=== PATIENT | male | born 1975 | race Caucasian/White ===

== ENCOUNTER 2018-11-01 13:55 | Observation (INO) | payer MEDICARE, MEDICAID ==
[~2018-11-01] VITALS: Ht 172.7 cm; Wt 79.7 kg
[~2018-11-01 13:55] MED LIST: ACET325T21 PO; ACET650S7 PR; BISA10SU65 PR; DIPH60LI PO; Folic Acid PO; MAGNESIUM DR64 MG PO; MULT-750 PO; NICO-485 TD; ONDA4TAB7 PO; PANT40TA5 PO; Risperidone PO; THIA100T67 PO; TRAZ50TA66 PO; VALP250C59 PO; VENL25TA PO; ZIPR20VI IM; ZOLP-413 PO
[2018-11-01 14:14] LABS: BASOPHILS # (AUTO) 0.04 x10^3/uL (0-0.1); BASOPHILS % (AUTO) 1 % (0-1); EOSINOPHILS # (AUTO) 0.15 x10^3/uL (0-0.4); EOSINOPHILS % (AUTO) 3 % (1-7); LYMPHOCYTES # (AUTO) 2.43 x10^3/uL (1-3.4); LYMPHOCYTES % (AUTO) 43 % (22-44); MD NO; MEAN CORPUSCULAR HEMOGLOBIN 30.9 pg (27.5-34.5); MEAN CORPUSCULAR VOLUME 90.8 fL (81-97); MEAN PLATELET VOLUME 7.4 fL (7.4-10.4); MONOCYTES # (AUTO) 0.73 x10^3/uL (0.2-0.8); MONOCYTES % (AUTO) 13 % (2-9); NEUTROPHILS # (AUTO) 2.37 x10^3/uL (1.8-6.8); NEUTROPHILS % (AUTO) 42 % (42-75); PLATELET COUNT 231 x10^3/uL (130-400); RED BLOOD COUNT 5.08 x10^6/uL (4.38-5.82); RED CELL DISTRIBUTION WIDTH 13.8 % (9.4-14.8)
[2018-11-01 14:28] LABS: ANION GAP 5 mmol/L (5-15); CALCIUM 8.7 mg/dL (8.5-10.1); CHLORIDE 110 mmol/L (98-107)
[2018-11-01 14:29] LABS: CREATININE 1.27 mg/dL (0.7-1.3)
--- NOTE | 2018-11-01 14:33 | NUR ---
pt to ed for luq abd pain x4 days. bulge and well healed scar present at painful area. pt denies n/v. connected to monitors. vss. no needs expressed. call light wtihin reach. edmd presend for assessment. orders received. awaiting us.
[2018-11-01 15:01] LABS: ALBUMIN 3.8 g/dL (3.4-5.0); BILIRUBIN, DIRECT 0.1 mg/dL (0.1-0.2)
[2018-11-01 15:03] LABS: BILIRUBIN,INDIRECT 0.3 mg/dL (0.0-2.0); BILIRUBIN,TOTAL 0.4 mg/dL (0.2-1.0); TOTAL PROTEIN 6.9 g/dL (6.4-8.2)
--- NOTE | 2018-11-01 15:45 | NUR ---
pt to ct.
--- NOTE | 2018-11-01 16:00 | NUR ---
pt back from imaging.
--- NOTE | 2018-11-01 16:06 | NUR ---
pt resting in room watching tv. vss. no needs expressed. call light within reach. awaiting ct resutls.
[2018-11-01] MEDS ORDERED: OMNIPAQUE 350 MG/ML, 100ML BOTTLE ONE (16:08)
--- NOTE | 2018-11-01 16:55 | NUR ---
edmd to bs to update on poc. plan to admit. vss. no needs expressed. awaiitng admit orders and room assignment.
--- NOTE | 2018-11-01 17:58 | NUR ---
Jourdan Rn: report to alberto redman [id number]
[2018-11-01] MEDS ORDERED: ONDANSETRON ODT 4 MG PO PRN (18:00)
[2018-11-01] MEDS ORDERED: SODIUM CHLORIDE 0.9% 1,000 ML IV ONE (18:00)
[2018-11-01] MEDS ORDERED: hydrALAzine 20 MG/ML, 1ML IVPush PRN (18:00)
[2018-11-01] MEDS ORDERED: ACETAMINOPHEN 325 MG TABLET PO PRN (18:00)
[2018-11-01] MEDS ORDERED: ONDANSETRON 2MG/ML, 2ML IVPush PRN (18:00)
[2018-11-01] MEDS: LACTATED RINGERS 1,000 ML IV SCH (18:27)
[2018-11-01] MEDS: HEPARIN 5,000 UNITS/ML, 1ML SQ SCH (18:27)
[2018-11-01 20:07] VITALS: BP 121/78
[2018-11-01] MEDS: FAMOTIDINE 20 MG/2 ML IVPush SCH (20:28)
[2018-11-01 20:30] VITALS: BP 125/70
[2018-11-02] MEDS: LACTATED RINGERS 1,000 ML IV SCH (00:51)
[2018-11-02] MEDS: HEPARIN 5,000 UNITS/ML, 1ML SQ SCH ×2 (01:51→10:06)
[2018-11-02 02:28] VITALS: BP 111/73
[2018-11-02 05:09] LABS: BASOPHILS # (AUTO) 0.03 x10^3/uL (0-0.1); BASOPHILS % (AUTO) 1 % (0-1); EOSINOPHILS # (AUTO) 0.15 x10^3/uL (0-0.4); EOSINOPHILS % (AUTO) 4 % (1-7); LYMPHOCYTES # (AUTO) 1.84 x10^3/uL (1-3.4); LYMPHOCYTES % (AUTO) 50 % (22-44); MD NO; MEAN CORPUSCULAR HEMOGLOBIN 31.2 pg (27.5-34.5); MEAN CORPUSCULAR HGB CONC 34.5 g/dL (33.2-36.2); MEAN CORPUSCULAR VOLUME 90.4 fL (81-97); MEAN PLATELET VOLUME 7.9 fL (7.4-10.4); MONOCYTES # (AUTO) 0.48 x10^3/uL (0.2-0.8); MONOCYTES % (AUTO) 13 % (2-9); NEUTROPHILS # (AUTO) 1.17 x10^3/uL (1.8-6.8); NEUTROPHILS % (AUTO) 32 % (42-75); PLATELET COUNT 213 x10^3/uL (130-400); RED BLOOD COUNT 4.96 x10^6/uL (4.38-5.82); RED CELL DISTRIBUTION WIDTH 13.5 % (9.4-14.8)
[2018-11-02 05:11] LABS: ANION GAP 5 mmol/L (5-15); CALCIUM 8.4 mg/dL (8.5-10.1); CHLORIDE 113 mmol/L (98-107); CHOLESTEROL, TOTAL 169 mg/dL (140-239); CREATININE 1.27 mg/dL (0.7-1.3); TRIGLYCERIDES 165 mg/dL (50-200); VLDL CHOLESTEROL 33 mg/dL (0-25)
[2018-11-02 05:13] LABS: HDL CHOL % 34 % (26-37); HDL CHOLESTEROL (DIRECT) 57 mg/dL (40-60); LDL CHOLESTEROL,CALCULATED 79 mg/dL (54-169); LDL/HDL RATIO 1.4 (0.5-3.0)
[2018-11-02] MEDS ORDERED: VENLAFAXINE 50MG TABLET ONE (07:48)
[2018-11-02] MEDS: FAMOTIDINE 20 MG/2 ML IVPush SCH (07:53)
[2018-11-02 07:59] VITALS: BP 132/95
[2018-11-02] MEDS ORDERED: VENLAFAXINE 25MG TABLET PO SCH (09:00)
== END 2018-11-02 13:25 | disposition home or self-care (01) ==
LOC: ED 17:01 → INTOOBSV 17:05 → EDIP 17:05 → 3NW 17:57 → DCLOUNGE 11-02 13:12
PROVIDERS: ADMIT Internal Medicine; ATTEND Internal Medicine
DX: R10.12 Left upper quadrant pain (principal); K43.9 Ventral hernia without obstruction or gangrene; F32.9 Major depressive disorder, single episode, unspecified; K85.00 Idiopathic acute pancreatitis without necrosis or infection; R74.8 Abnormal levels of other serum enzymes; Z90.49 Acquired absence of other specified parts of digestive tract; Z98.2 Presence of cerebrospinal fluid drainage device; Z82.49 Family history of ischemic heart disease and other diseases of the circulatory system
CPT/HCPCS: 36415; 74177; 80048; 80061; 80076; 83690; 85025; 96372; 96374; 96376; 99284; G0378; J1644; J3490; J7120; Q0162; Q9967

== ENCOUNTER 2021-02-21 15:45 | Emergency (ER) | payer MEDICARE, MEDICAID ==
[~2021-02-21] VITALS: Ht 172.7 cm; Wt 81.8 kg
[~2021-02-21 15:45] MED LIST changes: +ACET-2274 PO; -ACET325T21 PO; +MULT-482 PO; -MULT-750 PO; -PANT40TA5 PO; +PANT40TA6 PO; -VENL25TA PO; +VENL25TA33 PO
--- NOTE | 2021-02-21 16:03 | NUR ---
PT BIB EMS FOR SI. PER EMS PT STATES HE HAS A PLAN BUT IS UNABLE TO ELABORATE SPECIFIC DETAILS. PT STATES HE COULD "STAB HIMSELF" OR "OVERDOSE". PT DENIES ANY PHYSICAL COMPLAINTS AT THIS TIME. PT PLACED IN SECURE ROOM. BELONGINGS PLACED IN SECURE LOCKER. SITTER OUTSIDE ROOM IN DIRECT LINE OF SIGHT.
[2021-02-21 18:17] LABS: BASOPHILS % (AUTO) 1 % (0-1); EOSINOPHILS % (AUTO) 3 % (1-7); LYMPHOCYTES % (AUTO) 29 % (22-44); MEAN CORPUSCULAR HEMOGLOBIN 31.2 pg (27.5-34.5); MEAN CORPUSCULAR HGB CONC 33.5 g/dL (33.2-36.2); MEAN PLATELET VOLUME 7.6 fL (7.4-10.4); MONOCYTES % (AUTO) 9 % (2-9); NEUTROPHILS % (AUTO) 58 % (42-75); PLATELET COUNT 270 x10^3/uL (130-400); RED BLOOD COUNT 5.14 x10^6/uL (4.38-5.82); RED CELL DISTRIBUTION WIDTH 13.9 % (9.4-14.8)
[2021-02-21 18:24] LABS: CHLORIDE 103 mmol/L (98-107)
[2021-02-21 18:34] LABS: ALBUMIN 3.7 g/dL (3.4-5.0); ANION GAP 8 mmol/L (5-15); CALCIUM 9.1 mg/dL (8.5-10.1)
[2021-02-21 19:15] VITALS: BP 119/78
[2021-02-21 19:16] LABS: ALANINE AMINOTRANSFERASE 44 U/L (12-78); ALKALINE PHOSPHATASE 56 U/L (45-117); BILIRUBIN,TOTAL 0.4 mg/dL (0.2-1.0); CREATININE 0.94 mg/dL (0.7-1.3); SALICYLATE LEVEL 3.3 mg/dL (2.8-20.0); TOTAL PROTEIN 7.2 g/dL (6.4-8.2)
[2021-02-21 19:22] LABS: AMPHETAMINE SCREEN, URINE Negative (Negative); BARBITURATE SCREEN, URINE Negative (Negative); BENZODIAZEPINE SCREEN, URINE Negative (Negative); CANNABINOID SCREEN, URINE Negative (Negative); COCAINE SCREEN, URINE Negative (Negative); METHADONE SCREEN, URINE Negative (Negative); OPIATE SCREEN, URINE Negative (Negative)
--- NOTE | 2021-02-21 19:41 | NUR ---
patient sleepng in bed comfortably. VSS. room secured. no other current needs at this time
== END 2021-02-21 20:35 | disposition admitted as inpatient to this hospital (09) ==
LOC: ED 18:52
DX: R45.851 Suicidal ideations (principal); F32.9 Major depressive disorder, single episode, unspecified; Z20.822 Contact with and (suspected) exposure to COVID-19
CPT/HCPCS: 36415; 80053; 80164; 80299; 80307; 80320; 80329; 85025; 87426; 99283; G0480